=== PATIENT | female | born 1975 | race Caucasian/White ===

== ENCOUNTER 2016-07-09 13:42 | Emergency (ER) | payer SELFPAY ==
--- NOTE | 2016-07-15 15:36 | ER ---
ADMIT: 07/09/2016 RM/LOC: ER [facility] MR#: [id number] [id number] WHITNEY ROBERTS [address] [place] [address] Emergency Room Report SEX: F AGE: 41 : 1975 DATE: 07/09/2016 HISTORY: The patient is a 41-year-old female, presents to the emergency room with abdominal pain, but mainly points to the upper abdomen with nausea and vomiting, dizzy. She says she vomited twice in the last 2 days, so actually practically daily. She went to see Dr. Kim on Wednesday, and was unable to tell me if any labs had been done. Her last menstrual period was 2 weeks ago. She is a very poor historian. She says she takes tizanidine any time she feels like she needs to have it. She takes tramadol with sertraline, clonazepam, and Lyrica. PHYSICAL EXAMINATION: VITAL SIGNS: Blood pressure 135/85 with a heart rate of 81, respirations 18, temp is 96.4, and O2 sats 100%. GENERAL: She is alert. The physical examination is within normal limits. She does not have Doss sign or McBurney's point tenderness. No costovertebral tenderness. LABORATORY DATA: CBC within normal limits. Chemistry; glucose 127 with a hemoglobin A1c of 6.8. H. pylori negative. Blood trace in the urine with glucose 70. DIAGNOSES: Her diagnoses are diabetes mellitus type 2, noncompliant; dizziness, that is the main complaint that brought her here because she said she was given medication at the doctor's office and did not do anything for her. INSTRUCTIONS: She is advised to follow up with the primary provider, get her medications reviewed. I encouraged her not to take the tramadol with the sertraline and clonazepam, she can take Zofran for nausea, meclizine for dizziness, and metformin for her diabetes twice a day. Follow up with Dr. Kim. She sourced to me that she has controlled her diabetes in the past, she never mentioned that she had diabetes, but said controlled it with diet. At this point, she is not extremely high on her blood sugars, but obviously this is what is causing her symptoms. She denies any diarrhea, no issues when she eats, and stated that she was prescribed scopolamine patches and did not buy them, so she is pretty noncompliant with the medication recommendation. ALEX Hoffman / Chan Cross MD / timothy JOB #: [id number] CC: Chan Cross MD, Attending Physician UNKNOWN, Family Physician
== END 2016-07-09 17:35 | disposition home or self-care (01) ==
LOC: ER 13:42
DX: R10.10 Upper abdominal pain, unspecified (principal); E11.9 Type 2 diabetes mellitus without complications; F41.9 Anxiety disorder, unspecified